=== PATIENT | male | born 1960 | race Caucasian/White ===

== ENCOUNTER → 2017-01-13 | Day surgery (SDC) | payer OTHER | END | disposition home or self-care (01) | LOC: FAS 11:08 | DX: M75.02 Adhesive capsulitis of left shoulder (principal); M25.812 Other specified joint disorders, left shoulder; M75.112 Incomplete rotator cuff tear or rupture of left shoulder, not specified as traumatic; K21.9 Gastro-esophageal reflux disease without esophagitis; I10 Essential (primary) hypertension; E04.1 Nontoxic single thyroid nodule; Z88.8 Allergy status to other drugs, medicaments and biological substances; Z79.899 Other long term (current) drug therapy; Z98.890 Other specified postprocedural states; Z87.891 Personal history of nicotine dependence | CPT/HCPCS: J0690; J1100; J2704; J3010 ==